=== PATIENT | male | born 1940 | race Caucasian/White ===

== ENCOUNTER 2020-11-20 20:15 | Emergency (ER) | payer BC, MEDICARE ==
[2020-11-20] MEDS ORDERED: Ondansetron 4 MG Tab.DIS PO ONE (20:45)
--- NOTE | 2020-11-20 20:45 | EDM.PDOC ---
ED HPI GENERAL MEDICAL PROBLEM - General Chief Complaint: General Stated Complaint: FALL VIA NORTH Time Seen by Provider: 11/20/20 20:28 Source of Information: Reports: Patient, RN Notes Reviewed History Limitations: Reports: No Limitations - History of Present Illness INITIAL COMMENTS - FREE TEXT/NARRATIVE: Ramo complains of nausea for the past three days. He reports he has been sick with COVID for the past 7 or more days. He states he had a positive COVID test in the past. He reports he was in to the clinic yesterday, had lab work and a chest x-ray completed. He states he fell at home and did not want to come in to the emergency room but his family made him. He states he fidelia like a break from his family. He reports he does not feel like eating much and has no appetite. He denies fever, chills, nausea, chest pain, SOB, difficulty breathing, any other injury or trauma. Patient states he did not get COVID vaccine. Treatments OWNER: Reports: See EMS Report - Related Data Allergies Allergy/AdvReac Type Severity Reaction Status Date / Time Rvnqhrw-Rrl-Opf Reductase Allergy Muscle Verified 11/20/20 20:35 Inhibitor Aches Home Meds: Home Meds . [Unable to Verify Home Med List] 11/20/20 [History] Past Medical History HEENT History: Reports: Hard of Hearing Cardiovascular History: Reports: High Cholesterol, [place], Stents Musculoskeletal History: Reports: Arthritis, Fracture Neurological History: Reports: CVA - Infectious Disease History Infectious Disease History: Reports: Chicken Pox, Novel Coronavirus - Past Surgical History Cardiovascular Surgical History: Reports: Coronary Artery Stent GI Surgical History: Reports: Cholecystectomy Musculoskeletal Surgical History: Reports: Knee Replacement Social & Family History - Tobacco Use Tobacco Use Status *Q: Never Tobacco User - Caffeine Use Caffeine Use: Reports: Coffee - Recreational Drug Use Recreational Drug Use: No ED ROS GENERAL - Review of Systems Review Of Systems: See Below Constitutional: Reports: Malaise, Weakness. Denies: Fever, Chills, Fatigue, Night Sweats, Diaphoresis, Decreased Appetite, Weight Loss, Weight Gain HEENT: Reports: No Symptoms Respiratory: Reports: No Symptoms Cardiovascular: Reports: No Symptoms Endocrine: Reports: No Symptoms GI/Abdominal: Reports: Decreased Appetite, Nausea, Other (loss of taste and smell). Denies: Abdominal Pain, Constipation, Diarrhea : Reports: No Symptoms Musculoskeletal: Reports: Other (left hip pain that is chronic. ) Skin: Reports: No Symptoms Neurological: Reports: No Symptoms Psychiatric: Reports: No Symptoms Hematologic/Lymphatic: Reports: No Symptoms Immunologic: Reports: No Symptoms ED EXAM, GENERAL - Physical Exam Exam: See Below Exam Limited By: No Limitations General Appearance: Alert, WD/WN, No Apparent Distress Eye Exam: Bilateral Eye: Normal Inspection, PERRL Ears: Normal External Exam, Normal Canal, Hearing Grossly Normal, Other (impacted cerumen to bilateral ears. No erythema or drainage. ) Nose: Normal Inspection, Normal Mucosa, No Blood. No: Nasal Tenderness, Nasal Drainage Throat/Mouth: Normal Inspection, Normal Gums, Normal Oropharynx, Normal Voice, No Airway Compromise Head: Atraumatic, Normocephalic Neck: Normal Inspection, Supple, Non-Tender, Full Range of Motion. No: Lymphadenopathy (R), Lymphadenopathy (L) Respiratory/Chest: No Respiratory Distress, Lungs Clear, Normal Breath Sounds, No Accessory Muscle Use, Chest Non-Tender. No: Crackles, Rales, Rhonchi, Wheezing, Stridor, Retractions, Splinting Cardiovascular: Normal Peripheral Pulses, Regular Rate, Rhythm, No Edema, No Gallop, No Murmur, No Rub Peripheral Pulses: 4+: Radial (L), Radial (R), Dorsalis Pedis (L), Dorsalis Pedis (R) GI/Abdominal: Normal Bowel Sounds, Soft, Non-Tender, No Organomegaly, No Distention, No Abnormal Bruit, No Mass, Pelvis Stable. No: Guarding, Rigid, Rebound, Tender (Male) Exam: Deferred Rectal (Males) Exam: Deferred Back Exam: Normal Inspection, Full Range of Motion. No: CVA Tenderness (R), CVA Tenderness (L), Paraspinal Tenderness, Vertebral Tenderness Extremities: Normal Inspection, Normal Range of Motion, Non-Tender, No Pedal Edema, Normal Capillary Refill, Other (Ramo states his hip hurts, but it always hurts. ROM intact. X-ray offered, he declined. ). No: Felipe's Sign, Leg Pain, Redness Neurological: Alert, Oriented, Normal Cognition, No Motor/Sensory Deficits Psychiatric: Normal Affect, Normal Mood Skin Exam: Warm, Dry, Intact, Normal Color, No Rash. No: Ecchymosis, Erythema Lymphatic: No Adenopathy #1 Interpretation EKG Date: 11/20/20 Time: 21:08 Rhythm: NSR Rate (Beats/Min): 81 P-Wave: Present QRS: Normal ST-T: Normal QT: Normal Comparison: NA - No Prior EKG Course - Vital Signs Last Recorded V/S: Last Vital Signs Temp 36.4 C 11/20/20 20:25 Pulse 82 11/20/20 20:25 Resp 16 11/20/20 20:25 BP 145/72 H 11/20/20 20:25 Pulse Ox 94 L 11/20/20 20:25 - Orders/Labs/Meds Orders: Active Orders 24 hr Category Date Time Status EKG 12 Lead [EK] Routine Ther 11/21/20 00:12 Ordered Labs: Laboratory Tests 11/20/20 11/20/20 Range/Units 22:20 22:20 WBC 7.6 (4.5-11.0) K/uL RBC 4.98 (4.30-5.90) M/uL Hgb 14.6 (12.0-15.0) g/dL Hct 42.5 (40.0-54.0) % MCV 85 (80-98) fL MCH 29 (27-31) pg MCHC 34 (32-36) % Plt Count 208 (150-400) K/uL Neut % (Auto) 76.2 H (36-66) % Lymph % (Auto) 10.7 L (24-44) % [place] % (Auto) 12.7 H (2-6) % Eos % (Auto) 0.0 L (2-4) % Baso % (Auto) 0.4 (0-1) % Sodium 134 L (140-148) mmol/L Potassium 3.8 (3.6-5.2) mmol/L Chloride 97 L (100-108) mmol/L Carbon Dioxide 28 (21-32) mmol/L Anion Gap 12.8 (5.0-14.0) mmol/L BUN 22 H (7-18) mg/dL Creatinine 1.3 (0.8-1.3) mg/dL Est Cr Clr Drug Dosing 46.01 mL/min Estimated GFR (MDRD) 53 L (>60) Glucose 114 H (74-106) mg/dL Calcium 8.7 (8.5-10.1) mg/dL Total Bilirubin 0.4 (0.2-1.0) mg/dL AST 61 H (15-37) U/L ALT 49 (12-78) U/L Alkaline Phosphatase 35 L (46-116) U/L Total Protein 7.2 (6.4-8.2) g/dL Albumin 3.3 L (3.4-5.0) g/dL Globulin 3.9 H (2.3-3.5) g/dL Albumin/Globulin Ratio 0.9 L (1.2-2.2) Patient lab work completed. No acute findings noted. Patient lab work reviewed from [facility] from 11/19/2020 with no significant changes. Vital signs remain stable, patient will be discharged to home with ondansetron. Patient case reviewed with Dr. Alex, she is in agreement with plan. Advised to take acetaminophen as needed for pain. Meds: Medications Discontinued Medications Generic Name Dose Route Start Last Admin Trade Name Freq PRN Reason Stop Dose Admin Acetaminophen 1,000 mg 11/20/20 23:21 Acetaminophen 500 Mg Tab PO 11/20/20 23:22 ONETIME ONE Ondansetron HCl 4 mg 11/20/20 20:45 11/20/20 21:08 Ondansetron 4 Mg Tab.Dis PO 11/20/20 20:46 4 mg ONETIME ONE Administration - Re-Assessments/Exams Free Text/Narrative Re-Assessment/Exam: 11/20/20 21:24 Patient tolerated zofran well. Sips of water without difficulty, no emesis. Patient declines any other testing, requests to be discharged. 11/20/20 22:11 When nursing went in to room to discharge patient, patient now states "I don't want to go home, I just want to stay here". We will complete lab work. 11/20/20 23:15 Patient lab work, assessment reviewed with him, all his questions were answered. Unfortunately at this time he is not ill enough to be admitted to any hospital. Vital sings stable, no need of supplemental oxygen, no significant change in lab work. No monoclonal antibody infusion available at this time due to shortage. No bed availability at this time. Patient will be discharged to home, prescription for ondansetron provided. Patient informed of findings, all her questions were answered. Departure - Departure Time of Disposition: 23:23 Disposition: Home, Self-Care 01 Condition: Fair Clinical Impression: COVID, Nausea - Discharge Information Instructions: Nausea, Adult, 10 Things You Can Do to Manage Your COVID-19 Symptoms at Home - [facility] (09/04/2019), COVID-19: How to Protect Yourself and Others - [facility] Referrals: PCP,None [Primary Care Provider] - Forms: ED Department Discharge Additional Instructions: Ramo has been evaluated and treated for COVID illness with nausea. Take ondansetron 4mg by mouth every 8 hours as needed for nausea. Take acetaminophen (tylenol) as needed for pain up to three times a day. Drink water to stay hydrated, eat protein to build up strength. Follow up with primary as needed. Return for any worsening, issues or concerns. Sepsis Event Note (ED) - Evaluation Sepsis Screening Result: No Definite Risk - Focused Exam Vital Signs: Vital Signs Temp Pulse Resp BP Pulse Ox 11/20/20 20:25 36.4 C 82 16 145/72 H 94 L - My Orders Last 24 Hours: My Active Orders 11/21/20 00:12 EKG 12 Lead [EK] Routine - Assessment/Plan Last 24 Hours: My Active Orders 11/21/20 00:12 EKG 12 Lead [EK] Routine Assessment:: COVID Nausea Ramo was offered lab work, chest x-ray. He initially declined both. He then consented to lab and declined chest, pelvis/hip x-ray. Use of ondansetron did help with nausea. Patient advised to drink fluids, eat protein to stay strong. Plan: Ramo has been evaluated and treated for COVID illness with nausea. COVID, Nausea Take ondansetron 4mg by mouth every 8 hours as needed for nausea. Take acetaminophen (tylenol) as needed for pain up to three times a day. Drink water to stay hydrated, eat protein to build up strength. Follow up with primary as needed. Return for any worsening, issues or concerns. Patient and his inquired about antibody infusion, unfortunately we do not have any available at this time due to a shortage. He is advised to follow up with his primary on Monday.
[2020-11-20] MEDS ORDERED: Acetaminophen 500 MG Tab PO ONE (23:21)
== END 2020-11-21 00:06 | disposition home or self-care (01) ==
LOC: JP.ED 20:15
DX: U07.1 COVID-19 (principal); R11.0 Nausea; Z88.8 Allergy status to other drugs, medicaments and biological substances; Z86.16 Personal history of COVID-19
CPT/HCPCS: 36415; 80053; 85025; 93005; 99284-25; A9270-GY